=== PATIENT | female | born 1940 | race Caucasian/White ===

== ENCOUNTER 2023-06-04 10:59 | Emergency (ER) | payer OTHER, SELFPAY ==
[2023-06-04 11:07] VITALS: BP 125/81
--- NOTE | 2023-06-04 12:35 | ED.GENMED ---
History of Present Illness
General
Chief Complaint: Cough
Source: patient and records
Exam Limitations: none
Time Seen by Provider: 06/04/23 11:48
Nursing documentation reviewed up to this point in time: agreed with
Travel History
Have you had any contact with someone who has COVID-19?: No
Do you have any symptoms of coronavirus? Fever > 100 degrees, chills, cough, shortness of breath, sore throat, loss of taste or smell, muscle aches, or headache?: No
History of Present Illness
History of Present Illness:
Patient is an 82-year-old female who presents to the emergency department for a chest x-ray from her care home after the chest x-ray that was done last night was unremarkable. Patient started with a cough yesterday. Patient states that her
pulse ox might have been low but she does not remember what it has been and she has not felt short of breath. Patient denies fever or chills. Patient denies chest pain. Patient has a good appetite. Patient denies any lower extremity swelling.
Patient does have a history of rheumatoid arthritis and lupus. Patient is on steroids.
Past History
Past History
ED Past Medical History: Fibromyalgia, HTN, Hypercholesterolemia, Hypothyroidism, Psychiatric (depression, Anxiety) and Other (OA, RA, SLE, GI bleeding. Anemia, Lupus); Negative Arrthythmia or IDDM
ED Past Surgical History: Orthopedic (b/l hip and right knee replacement, L knee replacement) and Other (esophagel hernia repair)
Patient has exhibited threatening behavior?: No
PSI?: No
Social History
Tobacco: Former smoker (quit 28 years ago)
Alcohol: None
Drug: None
Personal: Single
Living: care home
Employment: Retired
Family History
Family History: Other (reviewed and noncontributory)
Review of Systems
Review of Systems
All Other Systems: ROS reviewed and negative except as documented in HPI and ROS
Constitutional: Denies fever or chills
EENT: Reports no symptoms
Respiratory: Reports cough; Denies trouble breathing
Cardiac: Reports no symptoms
ABD/GI: Reports no symptoms
Musculoskeletal: Denies edema
Skin: Reports no symptoms
Phy Exam
Physical Exam
Physical Exam:
Physical Exam
General: No apparent distress, alert and appropriate, well nourished, well hydrated
HENT: Normocephalic, supple with no lymphadenopathy, no thyromegaly
Eyes: Clear sclera, conjuctiva without injection
Heart: Regular rhythm and rate. No S3, S4. No murmur. No NVD
Lungs: No respiratory distress, no stridor, lung sounds clear and equal bilaterally
Abdomen: Soft, nontender
Neuro: Alert and oriented x 3, CN II - XII intact, no motor focality
Skin: no rash
Psychiatric: well kept. interactive and cooperative
Extremities: No edema, cyanosis, tenderness
Scores
Heart Failure Risk
Heart Failure Risk Score: Not Applicable
Heart Score for Chest Pain Patients
STEMI patient?: Not applicable
Withdrawal Assessment of Alcohol
Withdrawal Assessment Completed?: Not applicable
Course
Orders/Labs/Results
Orders:
Orders
06/04/23 11:12
Chest [CR Chest - 2 Views ] Urgent
Comment:
Reason For Exam: cough
Vital Signs
Initial and Last Documented VS:
Initial Vital Signs
Temp Pulse Resp BP Pulse Ox
98.3 F 71 20 125/81 96
06/04/23 11:07 06/04/23 11:07 06/04/23 11:07 06/04/23 11:07 06/04/23 11:07
Last Documented Vital Signs
Temp Pulse Resp BP Pulse Ox
98.3 F 71 20 125/81 96
06/04/23 11:07 06/04/23 11:07 06/04/23 11:07 06/04/23 11:07 06/04/23 11:07
*Radiology
Radiology exam reviewed: radiology read reviewed (Chest x-ray unremarkable)
*Pulse Oximetry
Patient hypoxic: no
*EKG
Interpreted by ED Provider?: NA
*Electronic Instrument Trades Worker Interpretation
Rate: Electronic Instrument Trades Worker- N/A
*Critical Care Note
Total Time (30-74mins, 75-104mins- exclusive of procedures): Not Applicable
ED Attending Note
-
Portions of this chart may have been created with voice recognition software.� Occasional wrong word or��sound alike� substitutions may have occurred due to the inherent limitations of voice recognition software.
Discharge Plan
Departure
Patient Disposition: Custodial/SNF
Date of Disposition: 06/04/23
Time of Disposition: 12:41
Patient with high blood pressure during this ER visit?: No
Condition: Good
Covid-19: Not Applicable
Discharge Problem:
Cough
Instructions: Cough, Adult (DC)
Prescriptions:
No Action
cyanocobalamin (vitamin B-12) 1,000 MCG tablet
1,000 mcg PO DAILY
cholecalciferol (vitamin D3) 1,000 UNITS tablet
2,000 units PO DAILY
melatonin 5 MG tablet
5 mg PO HS
magnesium hydroxide 30 ML suspension
30 ml PO [id number] PRN (Reason: constipation; if no bm in 3 days )
ascorbic acid (vitamin C) [Vitamin C] 500 MG tablet
500 mg PO BID
calcium carbonate [Antacid (calcium carbonate)] 1 TABLET tablet,chewable
500 mg PO TID
esomeprazole magnesium [Nexium] 40 MG capsule,delayed release(DR/EC)
40 mg PO DAILY
prednisone 5 MG tablet
7.5 mg PO DAILY
levothyroxine 50 MCG tablet
50 mcg PO DAILY AT 0700
venlafaxine [Effexor XR] 75 MG capsule,extended release 24hr
75 mg PO DAILY
Rx Instructions:
Administer w/ 37.5mg capsule = 112.5mg
Saccharomyces boulardii [Probiotic (S.boulardii)] 250 mg Capsule
250 mg PO DAILY
venlafaxine 37.5 MG capsule,extended release 24hr
37.5 mg PO DAILY
Rx Instructions:
Administer w/ 75mg = 112.5mg
acetaminophen 325 mg Tablet
650 mg PO Q4H MDD 3000 mg max/24 hrs PRN (Reason: mild pain; fever >100F)
labetalol 200 mg Tablet
200 mg PO BID
lidocaine [Salonpas (lidocaine)] 4 % Adhesive Patch,Medicated
1 patch TOPICAL DAILY
Rx Instructions:
to B/L shoulders and lower back. Apply in AM; remove in PM.
acetaminophen 500 mg Tablet
1,000 mg PO BID
bisacodyl [Dulcolax (bisacodyl)] 10 mg Suppository
10 mg [place] DAILYPRN PRN (Reason: if MOM ineffective after 24 hrs )
Fleet Enema 19-7 gram/118 mL Enema
118 ml [place] DAILYPRN PRN (Reason: If dulcolax ineffective in 24hrs)
folic acid 1 mg Tablet
1 mg PO SUTUWETHFRSA
Ricola Lozenge
1 vaishnavi mucous membrane Q4HPRN PRN (Reason: sore throat)
propylene glycol-glycerin 1-0.3 % Drops
2 drp BOTH EYES BID
Enbrel 50 MG/ML syringe
50 mg SC FR
gabapentin 300 mg capsule
300 mg PO TID
aspirin 81 mg Tablet,Chewable
81 mg PO DAILY
rosuvastatin 20 mg tablet
20 mg PO QPM
methotrexate sodium 2.5 MG tablet
17.5 mg PO MO
Patient Comments:
wednesday 7 tabs weekly
polyethylene glycol 3350 [HealthyLax] 17 gram Powder In Packet
17 g PO DAILY Qty: 30 0RF
labetalol 200 mg Tablet
200 mg PO BID Qty: 60 0RF
hydrocodone-acetaminophen 5-325 mg tablet
1 tab PO TID
Referrals:
Guevara White I., DO [Family Provider] - As needed
Activity Restrictions/Additional Instructions:
Continue present medications and therapy
Interventions
Interventions:
*ED COVID-19 Vaccine History Last Done: 06/04/23 11:07
ED- Pulmonary Assessment Last Done: 06/04/23 12:09
Discharge Date and Time
Print Language: SINHALA
[2023-06-04 15:45] VITALS: BP 116/71
[2023-06-04 15:46] VITALS: BP 116/71
== END 2023-06-04 15:48 ==
LOC: EMR 10:59
PROVIDERS: EMERGENCY PHYSICIAN Emergency Medicine; FAMILY PHYSICIAN Internal Medicine
DX: R05.9 Cough, unspecified (principal); M06.9 Rheumatoid arthritis, unspecified; M32.9 Systemic lupus erythematosus, unspecified; I10 Essential (primary) hypertension; E78.00 Pure hypercholesterolemia, unspecified; E03.9 Hypothyroidism, unspecified; F32.A Depression, unspecified; F41.9 Anxiety disorder, unspecified; M79.7 Fibromyalgia; Z87.891 Personal history of nicotine dependence; Z96.653 Presence of artificial knee joint, bilateral; Z88.1 Allergy status to other antibiotic agents; Z88.2 Allergy status to sulfonamides; Z88.8 Allergy status to other drugs, medicaments and biological substances; Z79.82 Long term (current) use of aspirin
CPT/HCPCS: 99283; 71046

== ENCOUNTER → 2023-08-31 14:35 | Outpatient (REF) | payer OTHER, SELFPAY | LOC: REG 14:35 | PROVIDERS: ATTENDING PHYSICIAN Physician Assistant; FAMILY PHYSICIAN Internal Medicine | DX: M06.09 Rheumatoid arthritis without rheumatoid factor, multiple sites (principal); M25.432 Effusion, left wrist; M79.7 Fibromyalgia | CPT/HCPCS: 73110 ==

== ENCOUNTER 2024-09-07 15:15 | Emergency (ER) | payer OTHER, MEDICARE, SELFPAY ==
[2024-09-07 15:25] VITALS: BP 149/79
[2024-09-07 15:28] LABS: Glucose - Point of Care 143 mg/dl (70-99)
[2024-09-07 15:33] VITALS: BMI 34.6
[2024-09-07 15:52] LABS: Hematocrit 32.6 % (37.0-47.0); Hemoglobin 10.4 g/dL (12.0-16.0); Mean Corp Hgb Conc. 31.9 g/dL (33.0-37.0); Mean Corpuscular Volume 108.3 fL (81.0-99.0); Nucleated Red Blood Cells % 0 %; Red Cell Dist. Width 14.1 % (11.5-14.5)
[2024-09-07 15:55] LABS: Alkaline Phosphatase 52 U/L (38-126); Blood Urea Nitrogen 21 mg/dl (7-17); Carbon Dioxide 29 mmol/L (22-30); Chloride 105 mmol/L (98-107); Estimated Creatinine Clearance 41 ml/min; Glucose 106 mg/dl (70-99); Potassium 4.6 mmol/L (3.5-5.1); Sodium 136 mmol/L (135-145); eGFR 56.25
[2024-09-07 15:56] LABS: ALT (SGPT) 22 U/L (0-35); AST (SGOT) 31 U/L (14-36); Albumin 3.8 g/dl (3.5-5.0); Calcium 8.7 mg/dl (8.4-10.2); Total Protein 5.6 g/dl (6.3-8.2)
[2024-09-07 16:00] VITALS: BP 152/88
--- NOTE | 2024-09-07 16:08 | ED.GENMED ---
History of Present Illness
General
Chief Complaint: Fall
Source: patient
Time Seen by Provider: 09/07/24 15:53
History of Present Illness
History of Present Illness:
This patient is an 83-year-old female who presents emergency department after reportedly having a fall at around 1130 this morning. She states she was transferring from her bed to the wheelchair, with assistance, and she excellently fell to the
floor. She did not hit her head there was no loss of consciousness. As per report, [facility] thought patient had a decreased level of consciousness associated with hypoxia confusion and difficulty obtaining a blood pressure. EMS did not find
these abnormalities upon their interaction with the patient. Here in the ER, patient is well-appearing, smiling, pleasant and denies any specific complaints. She does note bruising on the inner aspect of her right upper arm, but denies arm pain.
She denies neck pain, headache, dizziness, chest pain or palpitations, dyspnea, change in vision, abdominal pain, back pain, or other complaints.
Past History
Past History
ED Past Medical History: Fibromyalgia, HTN, Hypercholesterolemia, Hypothyroidism, Psychiatric (depression, Anxiety) and Other (OA, RA, SLE, GI bleeding. Anemia, Lupus); Negative Arrthythmia or IDDM
ED Past Surgical History: Orthopedic (b/l hip and right knee replacement, L knee replacement) and Other (esophagel hernia repair)
Patient has exhibited threatening behavior?: No
PSI?: No
Social History
Tobacco: Former smoker (quit 28 years ago)
Alcohol: None
Drug: None
Personal: Single
Living: [facility]
Employment: Retired
Family History
Family History: Other (reviewed and noncontributory)
Phy Exam
Physical Exam
Physical Exam:
GENERAL: Alert , in no apparent distress
EYE: pupils equal and reactive, EOMI, no nystagmus, no photophobia
NECK: Supple, no significant adenopathy, no midline tenderness.
ENT: o/p clr, mmm, no lundberg, no raccoon, no signs of head or facial injury noted on exam.
CARDIAC: Regular rate and rhythm .
LUNGS: Clear breath sounds bilaterally, no acute respiratory distress, no wheezes/rales/rhonchi
ABDOMEN: Soft, without focal tenderness, no r/g, no cvat
NEUROLOGICAL: Alert and oriented to person place and time, no focal neuro deficits, sensory intact throughout, motor equal throughout, speech clear
SKIN: Warm and dry, skin intact. There are various bruises on her extremities in various stages of healing which is not unusual as per patient. She does have what appear to be new areas of ecchymosis on the inner aspect of her right arm without
associated tenderness to palpation or deformity. Patient has chronic deviation of bones at joints secondary to RA
MUSCULOSKELETAL: No edema, well perfused.
PSYCH: Normal and appropriate interaction.
Course
Orders/Labs/Results
Orders:
Orders
09/07/24 15:20
Electrocardiogram (*1) Urgent
Reason for Study: Fatigue / Weakness
09/07/24 15:21
EKG- Treatment ONCE
09/07/24 15:29
Complete Blood Count/With Diff Urgent
Comprehensive Metabolic Panel Urgent
09/07/24 16:37
Forearm, Right 2 View [CR Forearm - Right 2 View] Urgent
Comment:
Reason For Exam: injury
Abnormal Lab Results
09/07/24 09/07/24
15:26 15:29
RBC 3.01 L 10^6/uL
(4.20-5.40)
Hgb 10.4 L g/dL
(12.0-16.0)
Hct 32.6 L %
(37.0-47.0)
MCV 108.3 H fL
(81.0-99.0)
MCH 34.6 H pg
(27.0-31.0)
MCHC 31.9 L g/dL
(33.0-37.0)
Abs Immat Gran (auto) 0.1 H 10^3/uL
(0-0.05)
Absolute Neuts (auto) 8.0 H 10^3/uL
(1.4-6.5)
Absolute Lymphs (auto) 0.4 L 10^3/uL
(1.2-3.4)
Neutrophils % 87.2 H %
(42.2-75.2)
Lymphocytes % 4.2 L %
(20.5-51.1)
BUN 21 H mg/dl
(7-17)
Glucose 106 H mg/dl
(70-99)
Total Protein 5.6 L g/dl
(6.3-8.2)
POC Glucose 143 H mg/dl
(70-99)
09/07/24 15:29
09/07/24 15:29
Vital Signs
Initial and Last Documented VS:
Initial Vital Signs
Temp Pulse Resp BP Pulse Ox
97.5 F 65 18 149/79 95
09/07/24 15:25 09/07/24 15:25 09/07/24 15:25 09/07/24 15:25 09/07/24 15:25
Last Documented Vital Signs
Temp Pulse Resp BP Pulse Ox
97.5 F 66 18 152/88 92
09/07/24 15:25 09/07/24 16:15 09/07/24 16:15 09/07/24 16:00 09/07/24 16:15
*Pulse Oximetry
SaO2: 95
Oxygen Mode of Delivery: Room air
Update Note
Update Note:
Patient presents to the Emergency Department with __reported mental status change hypoxia after fall
Number and Complexity of Problems Addressed at the Encounter
� Chronic conditions affecting care:
� Acute Exacerbation and/or Progression of Chronic Illness:
� Differential Diagnosis includes: But not limited to intracranial injury, medication effect, electrolyte disorder, dehydration etc. etc.
Amount and/or Complexity of Data to be Reviewed and Analyzed
� I performed an independent evaluation of and my interpretation is:
EKG: Read by me, normal sinus rhythm, LAD, no acute ischemia
CT:
Xrays:No acute fracture or dislocation. Partially visualized regional joints demonstrate degenerative changes. Soft tissues demonstrate extensive subcutaneous rounded calcifications, likely phleboliths.
Laboratory Studies: Generally unremarkable, mild prerenal azotemia, baseline anemia
Other:
� Review of other/old records reveals: Patient was in the hospital October 2022 with a syncopal event thought to be related to vasovagal. Her diagnoses includes 'chronic cognitive impairment'
� Clinical information was obtained by an independent historian:
� Prescriptions/Medications Considered but not given:
� Further testing considered but not performed:
Risk of Complications and/or Morbidity or Mortality of Patient Management
� Social determinants of health affecting care:
� Discussion with other providers (PCP, Hospitalists, Consultants, etc):
� Escalation of care including admission/observation vs risk of discharge considered:Vitals remain stable here,p t without sxs, nontoxic, watching tv. Unclear source of observed abnl at ca, here observation and w/u her ein
unremarkable. D/w pt import of f/u and reasons ot rted.
ED Attending Note
-
Portions of this chart may have been created with voice recognition software.� Occasional wrong word or��sound alike� substitutions may have occurred due to the inherent limitations of voice recognition software.
Discharge Plan
Departure
Patient Disposition: Half-Way/SNF
Date of Disposition: 09/07/24
Time of Disposition: 17:50
Discharge Problem:
Fall
Instructions: Contusion (DC), BLOOD PRESSURE
Prescriptions:
No Action
cyanocobalamin (vitamin B-12) 1,000 MCG tablet
1,000 mcg PO DAILY
cholecalciferol (vitamin D3) 1,000 UNITS tablet
2,000 units PO DAILY
melatonin 5 MG tablet
5 mg PO HS
magnesium hydroxide 30 ML suspension
30 ml PO [id number] PRN (Reason: constipation; if no bm in 3 days )
ascorbic acid (vitamin C) [Vitamin C] 500 MG tablet
500 mg PO BID
calcium carbonate [Antacid (calcium carbonate)] 1 TABLET tablet,chewable
500 mg PO TID
esomeprazole magnesium [Nexium] 40 MG capsule,delayed release(DR/EC)
40 mg PO DAILY
prednisone 5 MG tablet
7.5 mg PO DAILY
levothyroxine 50 MCG tablet
50 mcg PO DAILY AT 0700
venlafaxine [Effexor XR] 75 MG capsule,extended release 24hr
75 mg PO DAILY
Rx Instructions:
Administer w/ 37.5mg capsule = 112.5mg
Saccharomyces boulardii [Probiotic (S.boulardii)] 250 mg Capsule
250 mg PO DAILY
venlafaxine 37.5 MG capsule,extended release 24hr
37.5 mg PO DAILY
Rx Instructions:
Administer w/ 75mg = 112.5mg
acetaminophen 325 mg Tablet
650 mg PO Q4H MDD 3000 mg max/24 hrs PRN (Reason: mild pain; fever >100F)
labetalol 200 mg Tablet
200 mg PO BID
lidocaine [Salonpas (lidocaine)] 4 % Adhesive Patch,Medicated
1 patch TOPICAL DAILY
Rx Instructions:
to B/L shoulders and lower back. Apply in AM; remove in PM.
acetaminophen 500 mg Tablet
1,000 mg PO BID
bisacodyl [Dulcolax (bisacodyl)] 10 mg Suppository
10 mg [place] DAILYPRN PRN (Reason: if MOM ineffective after 24 hrs )
Fleet Enema 19-7 gram/118 mL Enema
118 ml [place] DAILYPRN PRN (Reason: If dulcolax ineffective in 24hrs)
folic acid 1 mg Tablet
1 mg PO SUTUWETHFRSA
Ricola Lozenge
1 vaishnavi mucous membrane Q4HPRN PRN (Reason: sore throat)
propylene glycol-glycerin 1-0.3 % Drops
2 drp BOTH EYES BID
Enbrel 50 MG/ML syringe
50 mg SC FR
gabapentin 300 mg capsule
300 mg PO TID
aspirin 81 mg Tablet,Chewable
81 mg PO DAILY
rosuvastatin 20 mg tablet
20 mg PO QPM
methotrexate sodium 2.5 MG tablet
17.5 mg PO MO
Patient Comments:
wednesday 7 tabs weekly
polyethylene glycol 3350 [HealthyLax] 17 gram Powder In Packet
17 g PO DAILY Qty: 30 0RF
labetalol 200 mg Tablet
200 mg PO BID Qty: 60 0RF
hydrocodone-acetaminophen 5-325 mg tablet
1 tab PO TID
Referrals:
Guevara White I., DO [Family Provider, Internal Medicine]
Activity Restrictions/Additional Instructions:
IF YOU DEVELOP CHEST PAIN, DIZZINESS, SEVERE HEADACHE, NECK PAIN, NUMBNESS, TROUBLE BREATHING, OR OTHER WORRISOME SIGNS, PLEASE RETURN TO THE ER IMMEDIATELY
Interventions
Interventions:
*Risk Screen - Suicide Last Done: 09/07/24 15:34
*General Assessment Last Done: 09/07/24 15:34
*Neglect/Abuse Screening Last Done: 09/07/24 15:34
*ED- Fall Risk Assessment Last Done: 09/07/24 15:34
*ED COVID-19 Vaccine History Last Done: 09/07/24 15:34
Discharge Date and Time
Print Language: MONTENEGRIN
[2024-09-07 17:33] VITALS: BP 157/90
[2024-09-07 18:00] VITALS: BP 166/82
[2024-09-07 20:14] VITALS: BP 122/64
== END 2024-09-07 20:18 ==
LOC: EMR 15:15
PROVIDERS: Emergency Medicine; EMERGENCY PHYSICIAN Emergency Medicine; FAMILY PHYSICIAN Internal Medicine
DX: S50.11XA Contusion of right forearm, initial encounter (principal); W06.XXXA Fall from bed, initial encounter; E03.9 Hypothyroidism, unspecified; E78.00 Pure hypercholesterolemia, unspecified; I10 Essential (primary) hypertension; M32.9 Systemic lupus erythematosus, unspecified; M79.7 Fibromyalgia; Z87.891 Personal history of nicotine dependence; Z98.890 Other specified postprocedural states
CPT/HCPCS: 99284; 73090; 80053; 82962; 85025; 93005

== ENCOUNTER 2024-11-06 16:10 | Emergency (ER) | payer OTHER, MEDICARE, SELFPAY ==
[2024-11-06 16:16] VITALS: BP 149/112
--- NOTE | 2024-11-06 19:18 | ED.GENMED ---
History of Present Illness
General
Chief Complaint: Musculo-Skeletal Complaint
Source: patient and records
Exam Limitations: none
Time Seen by Provider: 11/06/24 19:10
Nursing documentation reviewed up to this point in time: agreed with
History of Present Illness
History of Present Illness:
83-year-old female with a past medical history as noted significant for rheumatoid arthritis and lupus who presents to the emergency department from alf at [facility] for evaluation of left wrist/arm swelling. Patient reports that
symptoms have been ongoing for the past few weeks but she feels significantly worse over the past few days. She reports swelling initially in the left wrist that has become quite large and starting to spread proximally towards the forearm. She
does report pain but she says relatively mild pain. She has not noticed any redness or swelling. She has not had a fever or chills. She denies any trauma to the area. She says that she did have an x-ray a week ago that was positive for arthritis
but no other acute abnormalities. She says that she had some blood work earlier this month but nothing more recent. She says she has had similar issues in the past related to RA requiring therapeutic arthrocentesis.
Past History
Past History
ED Past Medical History: Fibromyalgia, HTN, Hypercholesterolemia, Hypothyroidism, Psychiatric (depression, Anxiety) and Other (OA, RA, SLE, GI bleeding. Anemia, Lupus); Negative Arrthythmia or IDDM
ED Past Surgical History: Orthopedic (b/l hip and right knee replacement, L knee replacement) and Other (esophagel hernia repair)
Patient has exhibited threatening behavior?: No
PSI?: No
Social History
Tobacco: Former smoker (quit 28 years ago)
Alcohol: None
Drug: None
Personal: Single
Living: alf
Employment: Retired
Family History
Family History: Other (reviewed and noncontributory)
Review of Systems
Review of Systems
All Other Systems: ROS reviewed and negative except as documented in HPI and ROS
Constitutional: Denies fever or chills
Cardiac: Denies chest pain or palpitations
ABD/GI: Denies abdominal pain
: Denies flank pain
Musculoskeletal: Reports joint pain and joint swelling; Denies neck pain or back pain
Neurological: Denies dizzy or headache
Phy Exam
Physical Exam
Physical Exam:
General: Awake, alert, oriented x3; no acute distress
Head: Normocephalic, atraumatic
Eyes: Conjunctiva normal
Throat: Airway intact, handling secretions
Neck: Trachea midline
Lungs: Breathing comfortably not in distress
Heart: Regular rate
Neuro: Cranial nerves grossly intact, speech fluid, motor and sensory intact distal left upper extremity
Skin: Warm and well-perfused
Extremities: Patient has swelling of the left wrist and distal left forearm without palpable effusion in the left wrist; no warmth or erythema but she does have a bruise in the area of concern, mild pain on range of motion in the left wrist, no pain
on range of motion of the left elbow or shoulder; she has some contractures in the rest of her joints but no no other joint effusions or other acute issues noted; good pulses throughout including specifically a strong left radial pulse
Scores
Heart Failure Risk
Heart Failure Risk Score: Not Applicable
Heart Score for Chest Pain Patients
STEMI patient?: Not applicable
Withdrawal Assessment of Alcohol
Withdrawal Assessment Completed?: Not applicable
Course
Orders/Labs/Results
Orders:
Orders
11/06/24 19:17
CR Wrist - Left Min 3 Views Urgent
Comment:
Reason For Exam: left wrist swelling
US Periph Venous UPPER Ext LT Urgent
Comment:
Reason For Exam: LUE swelling
11/06/24 20:12
CRP [C-Reactive Protein] Urgent
Complete Blood Count/With Diff Urgent
Comprehensive Metabolic Panel Urgent
ESR [Erythrocyte Sed Rate] Urgent
Uric Acid Urgent
Vital Signs
Initial and Last Documented VS:
Initial Vital Signs
Temp Pulse Resp BP Pulse Ox
36.9 C 76 18 149/112 94
11/06/24 16:16 11/06/24 16:16 11/06/24 16:16 11/06/24 16:16 11/06/24 16:16
Last Documented Vital Signs
Temp Pulse Resp BP Pulse Ox
36.9 C 76 18 149/112 94
11/06/24 16:16 11/06/24 16:16 11/06/24 16:16 11/06/24 16:16 11/06/24 19:23
MDM/Problems Addressed
Differential Diagnosis Includes:
Inflammatory arthritis, osteoarthritis, less likely septic arthritis, DVT consideration the less likely
MDM/Problems Addressed:
83-year-old female presents with joint swelling and mild pain in the left wrist. Denies any trauma or injury. Vitals and exam as above. Will check ultrasound to rule out DVT and to better characterize swelling on the distal wrist. Will check
x-ray. Reassess after the above.
X-ray shows arthritis but no fracture and no clear effusion in the joint. Ultrasound shows no DVT but does show fluid collection on the wrist could be hematoma versus seroma versus ganglion cyst. Although she denies trauma given bruising this area
I do think overall clinical picture seems most consistent with hematoma. Will apply Marc wrap. Stable for discharge can follow-up with her primary doctor outpatient.
*Radiology
Radiology exam reviewed: preliminary read by ED provider and radiology read reviewed
*Pulse Oximetry
SaO2: 94
Oxygen Mode of Delivery: Room air
Patient hypoxic: no (94%)
*Critical Care Note
Total Time (30-74mins, 75-104mins- exclusive of procedures): Not Applicable
Data Reviewed
Source: patient and records
ED Attending Note
-
Portions of this chart may have been created with voice recognition software.� Occasional wrong word or��sound alike� substitutions may have occurred due to the inherent limitations of voice recognition software.
Discharge Plan
Departure
Patient with high blood pressure during this ER visit?: Yes
Discharge Problem:
Hematoma of left wrist
Instructions: Hematoma
Prescriptions:
No Action
cyanocobalamin (vitamin B-12) 1,000 MCG tablet
1,000 mcg PO DAILY
cholecalciferol (vitamin D3) 1,000 UNITS tablet
2,000 units PO DAILY
melatonin 5 MG tablet
5 mg PO HS
magnesium hydroxide 30 ML suspension
30 ml PO [id number] PRN (Reason: constipation; if no bm in 3 days )
ascorbic acid (vitamin C) [Vitamin C] 500 MG tablet
500 mg PO BID
calcium carbonate [Antacid (calcium carbonate)] 1 TABLET tablet,chewable
500 mg PO TID
esomeprazole magnesium [Nexium] 40 MG capsule,delayed release(DR/EC)
40 mg PO DAILY
prednisone 5 MG tablet
7.5 mg PO DAILY
levothyroxine 50 MCG tablet
50 mcg PO DAILY AT 0700
venlafaxine [Effexor XR] 75 MG capsule,extended release 24hr
75 mg PO DAILY
Rx Instructions:
Administer w/ 37.5mg capsule = 112.5mg
Saccharomyces boulardii [Probiotic (S.boulardii)] 250 mg Capsule
250 mg PO DAILY
venlafaxine 37.5 MG capsule,extended release 24hr
37.5 mg PO DAILY
Rx Instructions:
Administer w/ 75mg = 112.5mg
acetaminophen 325 mg Tablet
650 mg PO Q4H MDD 3000 mg max/24 hrs PRN (Reason: mild pain; fever >100F)
labetalol 200 mg Tablet
200 mg PO BID
lidocaine [Salonpas (lidocaine)] 4 % Adhesive Patch,Medicated
1 patch TOPICAL DAILY
Rx Instructions:
to B/L shoulders and lower back. Apply in AM; remove in PM.
acetaminophen 500 mg Tablet
1,000 mg PO BID
bisacodyl [Dulcolax (bisacodyl)] 10 mg Suppository
10 mg WI DAILYPRN PRN (Reason: if MOM ineffective after 24 hrs )
Fleet Enema 19-7 gram/118 mL Enema
118 ml WI DAILYPRN PRN (Reason: If dulcolax ineffective in 24hrs)
folic acid 1 mg Tablet
1 mg PO SUTUWETHFRSA
Ricola Lozenge
1 vaishnavi mucous membrane Q4HPRN PRN (Reason: sore throat)
propylene glycol-glycerin 1-0.3 % Drops
2 drp BOTH EYES BID
Enbrel 50 MG/ML syringe
50 mg SC FR
gabapentin 300 mg capsule
300 mg PO TID
aspirin 81 mg Tablet,Chewable
81 mg PO DAILY
rosuvastatin 20 mg tablet
20 mg PO QPM
methotrexate sodium 2.5 MG tablet
17.5 mg PO MO
Patient Comments:
wednesday 7 tabs weekly
polyethylene glycol 3350 [HealthyLax] 17 gram Powder In Packet
17 g PO DAILY Qty: 30 0RF
labetalol 200 mg Tablet
200 mg PO BID Qty: 60 0RF
hydrocodone-acetaminophen 5-325 mg tablet
1 tab PO TID
Referrals:
Guevara White DO [Family Provider, Internal Medicine] - Follow up in 5-7 days
Activity Restrictions/Additional Instructions:
Thank you for visiting the Emergency Department at [facility].
1. Please schedule a follow up appointment as directed. Call first thing tomorrow morning to make an appointment.
2. If indicated, please take your medications as instructed and indicated on discharge paperwork.
3. If any of your symptoms do not improve, or persist, or become more severe within 6-12 hours, please return to the emergency department for further care.
4. Please return to the emergency department if you develop a headache, neck pain/stiffness, fever greater than 100.4F, chest pain, shortness of breath, persistent nausea, vomiting, slurred speech, difficulty walking, numbness/tingling, weakness,
signs of infection or any other symptoms that are worrisome to you.
Please call [phone] if you have any questions.
Interventions
Interventions:
*Risk Screen - Suicide Last Done: 11/06/24 20:32
*Neglect/Abuse Screening Last Done: 11/06/24 20:32
ED-Musculoskeletal Assessment Last Done: 11/06/24 20:30
Discharge Date and Time
Print Language: [id number]
[2024-11-06 20:39] LABS: ALT (SGPT) 26 U/L (0-35); AST (SGOT) 39 U/L (14-36); Albumin 4.3 g/dl (3.5-5.0); Alkaline Phosphatase 60 U/L (38-126); Blood Urea Nitrogen 17 mg/dl (7-17); Calcium 9.0 mg/dl (8.4-10.2); Carbon Dioxide 27 mmol/L (22-30); Chloride 102 mmol/L (98-107); Glucose 91 mg/dl (70-99); Potassium 4.5 mmol/L (3.5-5.1); Sodium 134 mmol/L (135-145); Total Protein 6.4 g/dl (6.3-8.2); Uric Acid 3.3 mg/dl (2.5-6.2); eGFR > 60.00
[2024-11-06 20:40] LABS: C-Reactive Protein < 5.00 mg/L (0.0-10.00)
[2024-11-06 21:05] LABS: Hematocrit 32.4 % (37.0-47.0); Hemoglobin 10.8 g/dL (12.0-16.0); Mean Corp Hgb Conc. 33.3 g/dL (33.0-37.0); Mean Corpuscular Volume 100.0 fL (81.0-99.0); Nucleated Red Blood Cells % 0 %; Platelet Count 211 10^3/uL (130-400); Red Cell Dist. Width 14.6 % (11.5-14.5)
== END 2024-11-06 21:57 | disposition home or self-care (01) ==
LOC: EMR 16:10
PROVIDERS: EMERGENCY PHYSICIAN Emergency Medicine; FAMILY PHYSICIAN Internal Medicine
DX: S60.212A Contusion of left wrist, initial encounter (principal); X58.XXXA Exposure to other specified factors, initial encounter; I10 Essential (primary) hypertension; E78.00 Pure hypercholesterolemia, unspecified; E03.9 Hypothyroidism, unspecified; M32.9 Systemic lupus erythematosus, unspecified; M06.9 Rheumatoid arthritis, unspecified; M19.032 Primary osteoarthritis, left wrist; M79.7 Fibromyalgia; F32.A Depression, unspecified; F41.9 Anxiety disorder, unspecified; Z87.891 Personal history of nicotine dependence; Z96.653 Presence of artificial knee joint, bilateral; Z96.643 Presence of artificial hip joint, bilateral
CPT/HCPCS: 99284; 73110; 80053; 84550; 85025; 85652; 86140; 93971